=== PATIENT | female | born 2000 | race American Indian/Alaskan Native ===

== ENCOUNTER 2022-08-10 12:15 | Emergency (ER) | payer MEDICAID ==
[2022-08-10 15:38] LABS: Basophils % (Auto) 0.5 % (0.0-1.8); Eosinophils # (Auto) 0.1 K/mm3 (0.0-0.4); Eosinophils % (Auto) 1.1 % (0.0-4.3); Hematocrit 33.7 % (30.3-42.9); Lymphocytes # (Auto) 1.4 K/mm3 (1.2-5.4); Lymphocytes % (Auto) 20.2 % (13.4-35.0); Mean Corpuscular HGB Conc 33 % (30-34); Mean Corpuscular Volume 91 fl (79-97); Monocytes # (Auto) 0.5 K/mm3 (0.0-0.8); Monocytes % (Auto) 7.7 % (0.0-7.3); Platelet Count 266 K/mm3 (140-440); Red Blood Count 3.71 M/mm3 (3.65-5.03); Red Cell Distribution Width 13.8 % (13.2-15.2)
[2022-08-10 16:08] LABS: Alanine Aminotransferase 6 units/L (7-56); Albumin 3.8 g/dL (3.9-5); Blood Urea Nitrogen 5 mg/dL (7-17); Calcium 9.3 mg/dL (8.4-10.2); Hemolysis Index 8
[2022-08-10 16:13] LABS: BUN/Creatinine Ratio 13
--- NOTE | 2022-08-10 16:31 | Ultrasound Report ---
OB Ultrasound HISTORY: pelvic pain. TECHNIQUE: Grayscale and color imaging performed. COMPARISON: None FINDINGS: Single viable intrauterine gestation with cephalic presentation and posterior placenta. Ove rall EGA by ultrasound is 18 weeks and 6 days with an estimated delivery date of 01/05/2023. Estimate of weight is 247 g. Heart rate is 167 bpm. Cervical length is 3.4 cm. No acute abnormality iden tified. IMPRESSION: Single viable intrauterine gestation as above. Signer Name: Robin Ferro MD Signed: 08/10/2022 4:27 PM Workstation Name: [id number]
--- NOTE | 2022-08-10 18:42 | Emergency Department Report ---
ED Female HPI - General Chief complaint: Abdominal Pain Stated complaint: ADB PAIN WHILE Time Seen by Provider: 08/10/22 17:18 Source: patient Mode of arrival: Ambulatory Limitations: No Limitations - History of Present Illness Initial comments: 22-year-old female patient of [facility] reports being 18 weeks presents emerged Yessi after expressing some pelvic pressure and cramping for which she was evaluated at [facility] and found to have what they stated was an incompetent cervix and a low . States that they had dialogue with her RECOVERY RN and they advised that she come to [facility] to be seen and evaluated so that they could manage it. She reports no vaginal bleeding, no fever, chills, sweats. No chest pain palpitations. No dysuria no hematuria. No nausea vomiting. -: Gradual Consistency: constant Improves with: none Worsens with: none Are you Now?: Yes Associated Symptoms: denies: vaginal discharge, vaginal bleeding, abdominal pain, nausea/vomiting, headaches, loss of appetite, dysuria, hematuria, shortness of breath, syncope, weakness - Related Data Allergies Allergy/AdvReac Type Severity Reaction Status Date / Time No Known Allergies Allergy Unverified 08/10/22 15:00 ED Review of Systems ROS: Stated complaint: ADB PAIN WHILE Other details as noted in HPI Comment: All other systems reviewed and negative ED Past Medical Hx - Past Medical History Previous Medical History?: No - Surgical History Past Surgical History?: Yes Additional Surgical History: Left knee surgery ED Physical Exam - General Limitations: No Limitations General appearance: alert, in no apparent distress - Head Head exam: Present: atraumatic, normocephalic - Eye Eye exam: Present: normal appearance - ENT ENT exam: Present: mucous membranes moist - Neck Neck exam: Present: normal inspection - Respiratory Respiratory exam: Present: normal lung sounds bilaterally. Absent: respiratory distress - Cardiovascular Cardiovascular Exam: Present: regular rate, normal rhythm. Absent: systolic murmur, diastolic murmur, rubs, gallop - GI/Abdominal GI/Abdominal exam: Present: soft, normal bowel sounds - Extremities Exam Extremities exam: Present: normal inspection - Back Exam Back exam: Present: normal inspection - Neurological Exam Neurological exam: Present: alert, oriented X3 - Psychiatric Psychiatric exam: Present: normal affect, normal mood - Skin Skin exam: Present: warm, dry, intact, normal color. Absent: rash ED Course Vital Signs 08/10/22 15:08 Temperature 97.1 F L Pulse Rate 100 H Respiratory 20 Rate Blood Pressure 130/76 [Right] O2 Sat by Pulse 100 Oximetry ED Medical Decision Making - Lab Data Result diagrams: 08/10/22 15:14 08/10/22 15:14 - Radiology Data Radiology results: report reviewed [facility] [address] [place] [address] Ultrasound Report Signed Patient: RAMÍREZ RODRIGUEZ MR#: [id number] 2 : 2000 Acct:[id number] Age/Sex: 22 / F ADM Date: 08/10/22 Loc: ED Attending Dr: Ordering Physician: OKURTNEY ARCE NP Date of Service: 08/10/22 Procedure(s): US OB <= 14 weeks fetus Accession Number(s): [id number] cc: KOURTNEY ARCE NP OB Ultrasound HISTORY: pelvic pain. TECHNIQUE: Grayscale and color imaging performed. COMPARISON: None FINDINGS: Single viable intrauterine gestation with cephalic presentation and posterior placenta. Overall EGA by ultrasound is 18 weeks and 6 days with an estimated delivery date of 01/05/2023. Estimate of weight is 247 g. Heart rate is 167 bpm. Cervical length is 3.4 cm. No acute abnormality identified. IMPRESSION: Single viable intrauterine gestation as above. Signer Name: Robin Ferro MD Signed: 08/10/2022 4:27 PM Workstation Name: [id number] Transcribed By: JW Dictated By: Robin Ferro MD Electronically Authenticated By: Robin Ferro MD Signed Date/Time: 08/10/221626 DD/ 25 TD/TT: - Medical Decision Making 20-year-old female presents emerged department after having pelvic pressure and report of a discovering that she had some dilation of her cervical os from [facility]. We will advised to consult with RECOVERY RN upon her arrival to the emergency department for the patient. [facility] RECOVERY RN were found in the on- call provider was made aware of the current 6 situations. Advised to have the patient follow-up in the office as outpatient and states that there is not much he can do in the emergency department this present time and not an no current intervention was necessary. Patient is hemodynamically stable no active vaginal bleeding pain is controlled Critical care attestation.: If time is entered above; I have spent that time in minutes in the direct care of this critically ill patient, excluding procedure time. ED Disposition Clinical Impression: Discomfort during Disposition: HOME / SELF CARE / HOMELESS Is pt being admited?: No Does the pt Need Aspirin: No Condition: Stable Instructions: Abdominal Pain (ED) Additional Instructions: Ultrasound shows at 18 weeks with a heartbeat of 168 please follow-up with your RECOVERY RN at their office on this Friday per their instructions after our conversation and regarding your care Referrals: SAVANNAH LEGGETT MD [Primary Care Provider] - 3-5 Days [facility] [Provider Group] - 3-5 Days
[2022-08-10 19:02] VITALS: BP 105/68
== END 2022-08-10 19:02 | disposition home or self-care (01) ==
LOC: ED 12:15
DX: O26.892 Other specified pregnancy related conditions, second trimester (principal); Z3A.01 Less than 8 weeks gestation of pregnancy
CPT/HCPCS: 36415; 76801; 76805; 76817; 80053; 84702; 85025; 99284